=== PATIENT | female | born 1975 | race Caucasian/White ===

== ENCOUNTER 2017-04-23 15:34 | Emergency (ER) | payer OTHER ==
[~2017-04-23] VITALS: Ht 167.6 cm; Wt 79.4 kg
[~2017-04-23 15:34] MED LIST: FLEXERIL PO; ICY HOT1 EAC1 TOP; LIDODERM 5%1 PATC1 TRANSDERM; PERCOCET
[2017-04-23 15:35] VITALS: BP 145/112
[2017-04-23] MEDS ORDERED: LOPRESSOR100 M1 PO (16:20)
[2017-04-23] MEDS ORDERED: PRINIVIL20 MG PO (16:20)
[2017-04-23 16:23] LABS: URINE BILIRUBIN NEGATIVE (Negative); URINE BLOOD NEGATIVE (Negative); URINE COLOR YELLOW; URINE GLUCOSE-RANDOM* NEGATIVE (Negative); URINE KETONES NEGATIVE (Negative); URINE LEUKOCYTES-REFLEX NEGATIVE (Negative); URINE PROTEIN (DIPSTICK) NEGATIVE (Negative); URINE UROBILINOGEN 0.2 E.U./dl (0.2-1.0)
[2017-04-23] MEDS ORDERED: MACROBID 100 M100 M1 PO (17:22)
[2017-04-23] MEDS ORDERED: PHENAZOPYRIDIN200 M2 PO (17:22)
[2017-04-23] MEDS ORDERED: LIORESAL 10 MG10 MG PO (17:22)
== END 2017-04-23 17:20 | disposition home or self-care (01) ==
LOC: ER 15:34
PROVIDERS: Physician Assistant
DX: N39.0 Urinary tract infection, site not specified (principal); N80.9 Endometriosis, unspecified; I10 Essential (primary) hypertension; Z90.710 Acquired absence of both cervix and uterus; Z88.6 Allergy status to analgesic agent; Z88.5 Allergy status to narcotic agent; Z88.1 Allergy status to other antibiotic agents; Z88.8 Allergy status to other drugs, medicaments and biological substances; Z87.891 Personal history of nicotine dependence